=== PATIENT | female | born 1995 | race Caucasian/White ===

== ENCOUNTER 2018-06-25 12:38 | Emergency (ER) | payer SELFPAY ==
[~2018-06-25] VITALS: Wt 48.6 kg
[2018-06-25] MEDS ORDERED: ACETAMINOPHEN 325 MG TAB PO STA (16:10)
--- NOTE | 2018-06-25 20:15 | ERD ---
ER Documentation Chief Complaint Chief Complaint VB since AM; + preg on home test. ROS All systems reviewed and are negative except as per history of present illness. Allergies Allergies: Coded Allergies: No Known Allergy (Unverified , 06/25/18) PMhx/Soc Medical and Surgical Hx: pt denies Medical Hx, pt denies Surgical Hx Hx Alcohol Use: Yes (social) Hx Substance Use: No Hx Tobacco Use: Yes Smoking Status: Current every day smoker Physical Exam Vitals Vital Signs Date Temp Pulse Resp B/P (MAP) Pulse Ox O2 O2 Flow FiO2 Time Delivery Rate 06/25/18 99.4 110 20 131/72 100 13:31 (91) Physical Exam Const: No acute distress Head: Atraumatic Eyes: Normal Conjunctiva ENT: Normal External Ears, Nose and Mouth. Neck: Full range of motion. No meningismus. Resp: Clear to auscultation bilaterally Cardio: Regular rate and rhythm, no murmurs Abd: Soft, non tender, non distended. Normal bowel sounds Skin: No petechiae or rashes Back: No midline or flank tenderness Ext: No cyanosis, or edema Neur: Awake and alert Psych: Normal Mood and Affect Result Diagram: 06/25/18 1623 Results 24 hrs Laboratory Tests Test 06/25/18 16:23 White Blood Count 14.8 10^3/ul Red Blood Count 4.44 10^6/ul Hemoglobin 10.2 g/dl Hematocrit 33.9 % Mean Corpuscular Volume 76.4 fl Mean Corpuscular Hemoglobin 23.0 pg Mean Corpuscular Hemoglobin Concent 30.1 g/dl Red Cell Distribution Width 17.2 % Platelet Count 283 10^3/UL Mean Platelet Volume 9.9 fl Immature Granulocytes % 0.500 % Neutrophils % 81.9 % Lymphocytes % 13.9 % Monocytes % 3.1 % Eosinophils % 0.2 % Basophils % 0.4 % Nucleated Red Blood Cells % 0.0 /100WBC Immature Granulocytes # 0.070 10^3/ul Neutrophils # 12.1 10^3/ul Lymphocytes # 2.1 10^3/ul Monocytes # 0.5 10^3/ul Eosinophils # 0.0 10^3/ul Basophils # 0.1 10^3/ul Nucleated Red Blood Cells # 0.0 10^3/ul Urine Color YELLOW Urine Clarity CLEAR Urine pH 5.0 Urine Specific Mullan 1.032 Urine Ketones 2+ mg/dL Urine Nitrite NEGATIVE mg/dL Urine Bilirubin 1+ mg/dL Urine Urobilinogen NEGATIVE mg/dL Urine Leukocyte Esterase NEGATIVE Oumou/ul Urine Microscopic RBC 1 /HPF Urine Microscopic WBC 1 /HPF Urine Mucus MANY /HPF Urine Hemoglobin 2+ mg/dL Urine Glucose NEGATIVE mg/dL Urine Total Protein 1+ mg/dl Beta HCG, Quantitative 69222.0 mIU/ml Current Medications Medications Dose Sig/Robert Start Time Status Last (Trade) Ordered Route PRN Stop Time Admin Dose Reason Admin 650 mg ONCE STAT 06/25/18 DC 06/25/18 Acetaminophen PO 16:10 16:23 (Tylenol 06/25/18 16:11 Tab) Departure Diagnosis: Primary Impression: Vaginal bleeding in patient at less than 20 weeks ges... Condition: Fair Patient Instructions: Bleeding During Early Referrals: COMMUNITY CLINICS YOU HAVE RECEIVED A MEDICAL SCREENING EXAM AND THE RESULTS INDICATE THAT YOU DO NOT HAVE A CONDITION THAT REQUIRES URGENT TREATMENT IN THE EMERGENCY DEPARTMENT. FURTHER EVALUATION AND TREATMENT OF YOUR CONDITION CAN WAIT UNTIL YOU ARE SEEN IN YOUR DOCTORS OFFICE WITHIN THE NEXT 1-2 DAYS. IT IS YOUR RESPONSIBILITY TO MAKE AN APPOINTMENT FOR FOLOW-UP CARE. IF YOU HAVE A PRIMARY DOCTOR --you should call your primary doctor and schedule an appointment IF YOU DO NOT HAVE A PRIMARY DOCTOR YOU CAN CALL OUR PHYSICIAN REFERRAL HOTLINE AT IF YOU CAN NOT AFFORD TO SEE A PHYSICIAN YOU CAN CHOSE FROM THE FOLLOWING [facility] [address] [facility]. [facility] [address] [facility]. [facility] [address] [facility]. [facility] [address] [facility]. [place] [address] [facility]. [address] [facility] [place] [address] [facility] [address] [place] [address] OFFICE FA[address] TRINA WILDE [address] [place] [address] [address] [place] [address] [place] [address] [address] [facility] [facility] [address], [address], [place] [address] [facility] [address] [place] [address] [facility] [address] [place] [address] [address] [facility] [address] - [address] ABAD ABIEL [address] [facility]. [address] [address] DR [place], [place] [address] [facility]. [address], [place] [address] [address] [facility] [address] [place], [place] [id number] Additional Instructions: Call your primary care doctor TOMORROW for an appointment during the next 1-2 days.See the doctor sooner or return here if your condition worsens before your appointment time. Return to ER for repeat blood work, beta HCG ADEEL MONACO DO Jun 25, 2018 20:15
== END 2018-06-25 19:16 | disposition left against medical advice (07) ==
LOC: FTE 12:38
DX: O20.9 Hemorrhage in early pregnancy, unspecified (principal); F17.210 Nicotine dependence, cigarettes, uncomplicated; O99.331 Smoking (tobacco) complicating pregnancy, first trimester; Z3A.01 Less than 8 weeks gestation of pregnancy
CPT/HCPCS: 36415; 76801; 81001; 84702; 85025; 86900; 86901

== ENCOUNTER 2018-06-28 20:44 | Emergency (ER) | payer SELFPAY ==
[~2018-06-28] VITALS: Ht 157.5 cm; Wt 51.4 kg
[2018-06-28 20:52] VITALS: Ht 157.5 cm; Wt 51.4 kg
[2018-06-29] MEDS ORDERED: ASCO500C7 PO (01:50)
[2018-06-29] MEDS ORDERED: FER325 PO (01:50)
[2018-06-29 02:27] VITALS: BP 116/71; PULSE 97; RESP 19
--- NOTE | 2018-06-29 02:58 | ERD ---
ER Documentation Chief Complaint Chief Complaint told to come back for follow up after 2 days. denies vb HPI 23 year-old [female] coming in today with Chief Complaint: Labwork recheck History of Present Illness: Patient reporting ER visit on 06/25/2018; ultrasound showing intrauterine without heartbeat, formed to follow-up in 3 days for repeat hCG. Patient reporting no vaginal bleeding, brown spotting. Intermittent cramping has decreased. No signs of respiratory distress denies any other associated symptoms, Review of systems: All systems were reviewed and are negative except for what is indicated in the history of present illness. Past Medical History: [Negative for hypertension, diabetes or other medical p roblems] Social History: [Patient denies alcohol; positive tobacco and elicit drug use] Medications: [None] Allergies: [NKDA] Social Concerns: Denies ROS All systems reviewed and are negative except as per history of present illness. Medications Home Meds Active Scripts Ascorbic Acid* (Vitamin C*) 500 Mg Capsule.sa, 500 MG PO DAILY for help absorb iron, #60 CAP Prov:MARY BETH HARO V ENTRY OPERATOR 06/29/18 Ferrous Sulfate* (Ferrous Sulfate*) 325 Mg Tabec, 325 MG PO BID for anemia, #60 TAB Prov:MARY BETH HARO V ENTRY OPERATOR 06/29/18 Allergies Allergies: Coded Allergies: No Known Allergy (Unverified , 06/25/18) PMhx/Soc Medical and Surgical Hx: pt denies Medical Hx History of Surgery: Yes ([facility] 2015) Anesthesia Reaction: No Hx Alcohol Use: Yes (social) Hx Substance Use: No Hx Tobacco Use: Yes Smoking Status: Current every day smoker FmHx Family History: No diabetes, No coronary disease Physical Exam Vitals Vital Signs Date Temp Pulse Resp B/P (MAP) Pulse Ox O2 O2 Flow FiO2 Time Delivery Rate 06/29/18 98.4 97 19 116/71 98 Room Air 02:27 (86) 06/28/18 97.8 110 20 124/77 99 20:52 (93) Physical Exam Const: No acute distress Head: Atraumatic Eyes: Normal Conjunctiva ENT: Normal External Ears, Nose and Mouth. Neck: Full range of motion. No meningismus. Resp: Clear to auscultation bilaterally Cardio: Regular rate and rhythm, no murmurs Abd: Soft, non tender, non distended. Normal bowel sounds Skin: No petechiae or rashes Back: No midline or flank tenderness Ext: No cyanosis, or edema Neur: Awake and alert Psych: Normal Mood and Affect Vaginal exam deferred. She refused. Result Diagram: 06/28/180 Results 24 hrs Laboratory Tests Test 06/28/18 23:30 White Blood Count 5.4 10^3/ul Red Blood Count 3.79 10^6/ul Hemoglobin 8.8 g/dl Hematocrit 29.8 % Mean Corpuscular Volume 78.6 fl Mean Corpuscular Hemoglobin 23.2 pg Mean Corpuscular Hemoglobin Concent 29.5 g/dl Red Cell Distribution Width 17.6 % Platelet Count 251 10^3/UL Mean Platelet Volume 10.3 fl Immature Granulocytes % 0.600 % Neutrophils % 47.5 % Lymphocytes % 41.3 % Monocytes % 5.6 % Eosinophils % 4.4 % Basophils % 0.6 % Nucleated Red Blood Cells % 0.0 /100WBC Immature Granulocytes # 0.030 10^3/ul Neutrophils # 2.6 10^3/ul Lymphocytes # 2.2 10^3/ul Monocytes # 0.3 10^3/ul Eosinophils # 0.2 10^3/ul Basophils # 0.0 10^3/ul Nucleated Red Blood Cells # 0.0 10^3/ul Beta HCG, Quantitative 1730.8 mIU/ml Procedures/MDM ED course includes a thorough examination and history. Course includes labs; hCG quantitative and CBC. Low suspicion for infectious retained products or life-threatening medical emergency. Otherwise healthy patient presenting with constellation of symptoms likely representing uncomplicated anemia and microcytic anemia secondary to miscarriage as characterized by history, physical exam findings [lab findings]. Ultrasound deferred, no indication for infectious retained products. Patient no longer bleeding. Vital signs within normal limits. Patient hemodynamically stable. Tolerating p.o. without difficulty. No respiratory distress, otherwise relatively well appearing and nontoxic. Patient educated on diagnoses, prescriptions [ferrous sulfate and vitamin C anemia], follow-up care, return precautions. Strict return precautions given for worsening condition; questions answered discharge. Return precautions if increased bleeding or signs and symptoms of respiratory distress, lightheaded, dizziness, syncope. Disposition for discharge with followup in 2-3 days with PCP/clinic, and SURGEON'S ASSISTANT. Departure Diagnosis: Primary Impression: Miscarriage Condition: Stable Patient Instructions: Miscarriage Referrals: COMMUNITY CLINICS YOU HAVE RECEIVED A MEDICAL SCREENING EXAM AND THE RESULTS INDICATE THAT YOU DO NOT HAVE A CONDITION THAT REQUIRES URGENT TREATMENT IN THE EMERGENCY DEPARTMENT. FURTHER EVALUATION AND TREATMENT OF YOUR CONDITION CAN WAIT UNTIL YOU ARE SEEN IN YOUR DOCTORS OFFICE WITHIN THE NEXT 1-2 DAYS. IT IS YOUR RESPONSIBILITY TO MAKE AN APPOINTMENT FOR FOLOW-UP CARE. IF YOU HAVE A PRIMARY DOCTOR --you should call your primary doctor and schedule an appointment IF YOU DO NOT HAVE A PRIMARY DOCTOR YOU CAN CALL OUR PHYSICIAN REFERRAL HOTLINE AT IF YOU CAN NOT AFFORD TO SEE A PHYSICIAN YOU CAN CHOSE FROM THE FOLLOWING [facility] [address] [facility] [address] [facility]. [facility] [address] [facility]. [facility] [address] [facility]. [facility] [address] [facility]. [facility] [address] [facility]. [facility] YOU HAVE RECEIVED A MEDICAL SCREENING EXAM AND THE RESULTS INDICATE THAT YOU DO NOT HAVE A CONDITION THAT REQUIRES URGENT TREATMENT IN THE EMERGENCY DEPARTMENT. FURTHER EVALUATION AND TREATMENT OF YOUR CONDITION CAN WAIT UNTIL YOU ARE SEEN IN YOUR DOCTORS OFFICE WITHIN THE NEXT 1-2 DAYS. IT IS YOUR RESPONSIBILITY TO MAKE AN APPOINTMENT FOR FOLOW-UP CARE. IF YOU HAVE A PRIMARY DOCTOR --you should call your primary doctor and schedule and appointment IF YOU DO NOT HAVE A PRIMARY DOCTOR YOU CAN CALL OUR PHYSICIAN REFERRAL HOTLINE AT . IF YOU CAN NOT AFFORD TO SEE A PHYSICIAN YOU CAN CHOSE FROM THE FOLLOWING ON LICENSE OF [facility] INSTITUTIONS[facility] [address] [place] [address] [facility] [address] [place] [address] [facility] [address] [place] [address] [facility] Hours: 8:00 am - 5:00 pm Additional Instructions: For anemia, Start ferrous sulfate and vitamin C Return for signs and symptoms of respiratory distress, lightheadedness, dizziness, passing out. HCG level is 1730; it has gone down tremedously since last ER visit. No signs of infection to indicate infectious retained products. close follow up with jboss architect Call your primary care doctor TOMORROW for an appointment during the next 2-3 days.See the doctor sooner or return here if your condition worsens before your appointment time. MARY BETH HARO NP Jun 29, 2018 02:58
== END 2018-06-29 02:28 | disposition home or self-care (01) ==
LOC: FTE 20:44
DX: O03.9 Complete or unspecified spontaneous abortion without complication (principal); O99.330 Smoking (tobacco) complicating pregnancy, unspecified trimester; F17.210 Nicotine dependence, cigarettes, uncomplicated; Z3A.00 Weeks of gestation of pregnancy not specified
CPT/HCPCS: 36415; 84702; 85025; 99283